=== PATIENT | male | born 1985 | race Caucasian/White ===

== ENCOUNTER 2016-09-03 14:54 | Emergency (ER) | payer OTHER ==
[~2016-09-03] VITALS: Ht 175.3 cm; Wt 110.0 kg
[2016-09-03 15:13] VITALS: BP 142/91; PULSE 111; RESP 16; O2SAT 95
--- NOTE | 2016-09-03 15:19 | ED.REPORT ---
HPI-Hand Prob/Inj Date of Service Sep 03, 2016 ED Provider: Dr. Brown Pt is a 31 year old male presenting to the ED complaining of pain and a contusion to his left index finger. He reports that his finger got caught on a drill bit as he was cutting an outlet cover. He denies any other symptoms at this time. Nursing Notes Stated Complaint: LEFT INDEX FINGER LACERATION Chief Complaint: Laceration Nursing Notes Reviewed: Yes Allergies: Coded Allergies: No Known Allergies (Unverified , 09/03/16) No Active Prescriptions or Reported Meds General Time Seen by Provider: 15:20 Chief Complaint Finger injury left Hx Obtained From: Patient Arrived By: Walk-in Onset Occurred: Just prior to arrival Symptom Duration: Since onset Progression Since Onset: Unchanged Caused by: Accidental Quality: Painful Severity: Current: Mild Severity: Maximum: Mild Immunizations: Tetanus up to date Recent Healthcare: No recent doctor visit, No recent hospitalization Similar Sx Previous: No Past Medical History Past Medical History denies Past Surgical History denies Ambulatory Status Independent Review of Systems Constitutional: Denies: Fever Musculoskeletal: Reports: Extremity pain (Left index finger) Neurologic: Denies: Weakness Complete sys rev & neg: except as marked. Respiratory: Denies: Shortness of breath Physical Exam Initial Vital Signs Vital Signs (First) Date Time Temp Pulse Resp B/P Pulse Ox O2 Delivery O2 Flow Rate FiO2 09/03/16 15:13 37.4 111 16 142/91 95 Room Air Initial VS: Reviewed General/Constitutional: Well-developed, Well-nourished Head / Eyes: Atraumatic, Normocephalic, PERRL Neck: Full range of motion Respiratory: No respiratory distress Abdomen / GI: No distention Extremities: Vascular intact, Neuro intact, No swelling, No tenderness Skin: Warm, Dry, No cyanosis Neurologic: Alert, Oriented, Nonfocal Psychiatric: Mood/affect normal, Behavior normal, Normal thought content Wrist / Hand: Full range of motion, Vascular intact, No ligamentous injury, Tendon function NL Left index finger 1.5cm laceration. Procedures Laceration Management Time: 15:26 Procedure Performed by: ED physician Consent / Setup / Site Prep: Consent from patient Wound Length: 1 cm Local Anesthesia: Lidocaine 1% Digital Block: No Digit Involved: Index finger left Wound Preparation: Shurclens Debridement: None Irrigation: 50 cc Foreign Body Explore / Removal: Explored for foreign body Repair Skin: ___ O # Sutures - Skin: 3 Closure Layers: 1 Suture Technique: Simple Post-Procedure / Complications: Dressing applied, No complications, Condition improved, Tolerated procedure well, Patient stable Re-Eval/Medical Decision Re-Evaluation/Progress : Time of Eval: 15:42 Patient Status: Condition improved Re-Evaluation/Progress Note: Discussed plan for discharge. Pt understands and agrees. Counseled Regarding: Diagnosis, Lab results, Need for follow-up, When/why to return to ED Discharge & Departure Primary Impression: Finger laceration Encounter type: initial encounter Qualified Code: S61.219A - Laceration without foreign body of unspecified finger without damage to nail, initial encounter Disposition: Home Discharge Condition All VS Reviewed: Yes Condition: Improved Patient Instructions: Finger Laceration (ED) Additional Instructions: Sutures should be removed in 8 or 9 days. Follow up right away there are any signs of infection. Starting tomorrow, it is okay to wash with clean tap water and soap daily. Keep the wound clean and dry otherwise. Referrals: Arabella Dale MD (PCP) Deonibe Attestation Portions of this note were transcribed by Ananya Sanchez. I, Dr. Brown personally performed the history, physical exam and medical decision-making; I reviewed and confirmed the accuracy of the information in the transcribed note. Signed by: Luis Mccrary, 09/03/2016 and 1542. copies to: Arabella Dale MD, Kirk H MD Sep 03, 2016 15:19 ANANYA SANCHEZ Sep 03, 2016 15:32
== END 2016-09-03 15:41 | disposition home or self-care (01) ==
LOC: SED 14:54
DX: S61.211A Laceration without foreign body of left index finger without damage to nail, initial encounter (principal); W29.8XXA Contact with other powered hand tools and household machinery, initial encounter; Y93.89 Activity, other specified; Y92.9 Unspecified place or not applicable; Y99.0 Civilian activity done for income or pay